=== PATIENT | male | born 1965 | race Two or more races ===

== ENCOUNTER 2018-07-01 10:01 | Emergency (ER) | payer BC ==
[2018-07-01] MEDS ORDERED: Sodium Chloride 0.9% 1,000 ML IV SCH (10:15)
[2018-07-01 10:16] VITALS: BP 143/91
--- NOTE | 2018-07-01 10:19 | EDM.PDOC ---
ED HPI GENERAL MEDICAL PROBLEM - General Chief Complaint: Chest Pain Stated Complaint: BODY CRAMPS Time Seen by Provider: 07/01/18 10:05 Source of Information: Reports: Patient History Limitations: Reports: No Limitations - History of Present Illness INITIAL COMMENTS - FREE TEXT/NARRATIVE: 52-year-old male Syriac [place] descent presents to the ED for evaluation of diffuse body cramps. It's primarily affecting his lower extremities but has affected his left abdominal wall as well as his chest and neck musculature at times. 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 He states that often during the day he feels lightheaded dizzy and like he could pass out. Of note the patient is on 2 antihypertensive medications. Patient states she's lost about 15 pounds of weight in the last 4 weeks. He states he has polydipsia and polyuria. Not known to be diabetic. He has decreased his metoprolol from 50 mg a day to 25 mg a day as he recognized he was getting too dizzy from the medication. Initial blood pressure here is 143/91. Of course she is mildly apprehensive. He told the nurses that he was experiencing chest pains but from history these are chest wall muscle spasms not cardiac related. Nurses were able to ascertain that since February he's been taking primarily a vegetarian type diet and having only a sandwich once a day. Us is the reason for primarily for his weight loss. He was purposely trying to lose weight but never to lower his cholesterol. Onset: Other (Has been having intermittent cramping in his musculature and feeling weak and dizzy for at least 3 weeks) Onset Date: 06/07/18 Duration: Week(s):, Chronic Location: Reports: Generalized (Generalized muscle ) Quality: Reports: Other Severity: Severe (Strong muscle cramps particularly involving his lower extremities. Very hard to walk at times.) Improves with: Reports: Rest Worsens with: Reports: Other Context: Reports: Other (Works outside in hot ambient temperatures as of late.) . Denies: Activity (Activity and work outside seems to make things worse.), Exercise, Lifting, Sick Contact, Trauma Associated Symptoms: Reports: Chest Pain, Cough (Muscle cramps in his chest wall.), Malaise, Weakness (At times). 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 (see below) (Only medications prescribed.) Chest Pain Score (Numeric/FACES): 5 - Related Data Allergies Allergy/AdvReac Type Severity Reaction Status Date / Time No Known Allergies Allergy Verified 07/01/15 21:13 Home Meds: Home Meds Metoprolol Succinate 25 mg PO DAILY 03/31/14 [History] Pantoprazole [Protonix] 40 mg PO DAILY 03/31/14 [History] Aspirin [Halfprin] 1 tab PO DAILY 07/01/18 [History] FLUoxetine [PROzac] 10 mg PO DAILY 07/01/18 [History] Ibuprofen/Famotidine [Duexis 800-26.6 MG] 1 each PO Q8H PRN 07/01/18 [History] atorvaSTATin [Lipitor] 5 mg PO DAILY 07/01/18 [History] traZODone HCl [Trazodone HCl] 100 mg PO BEDTIME PRN 07/01/18 [History] Past Medical History Other Gastrointestinal History: h pylori history Musculoskeletal History: Reports: Other (See Below) (Has been having some right flank back pain for the last 2-3 weeks.) Neurological History: Reports: Other (See Below) (Dizziness.) Social & Family History - Living Situation & Occupation Living situation: Reports: Occupation: Employed [employer] - Review of Systems Review Of Systems: See Below Constitutional: Reports: Malaise, Weakness, Fatigue, Diaphoresis (At times), Decreased Appetite (Reports 15 pound weight loss over the last 4 weeks), Weight Loss. Denies: Fever, Chills HEENT: Denies: Contact Lenses, Dental Pain, Ear Discharge, Glasses, Hearing Loss , Nosebleed, Nose Pain, Rhinitis, Sinus Problem, Throat Pain, Throat Swelling, Vertigo, Vision Change Respiratory: Reports: Cough (Feels a scratching feeling in the back of his throat suspect due to allergy. This will sometimes make him cough nonproductive. ) Cardiovascular: Reports: Blood Pressure Problem, Lightheadedness. Denies: Chest Pain, Claudication (Chronically hypertensive and is on medication for this.), Dyspnea on Exertion, Edema (Intermittently), Orthopnea, Palpitations, PND, Syncope, Other Endocrine: Reports: Fatigue GI/Abdominal: Reports: Abdominal Pain, Decreased Appetite (Abdominal wall cramping pain.), Nausea (Occasionally.). Denies: Black Stool, Bloody Stool, Difficulty Swallowing, Distension, Flatus, Hematochezia, Melena, Stool Incontinence : Reports: Frequency Musculoskeletal: Reports: Back Pain (Persistent back pain right flank area for the last 3 weeks.) Skin: Reports: No Symptoms Neurological: Reports: Dizziness, Difficulty Walking, Weakness. Denies: Pre- Existing Deficit (Lightheadedness at times), Seizure, Syncope, Tingling, Trouble Speaking, Change in Speech (If occult walking occurs sometimes due to cramping in his lower extremities), Gait Disturbance Psychiatric: Denies: Agitation, Anxiety, Confusion, Cravings, Depression, Homicidal Ideation, Suicidal Ideation Hematologic/Lymphatic: Reports: No Symptoms Immunologic: Reports: No Symptoms ED EXAM, GENERAL - Physical Exam Exam: See Below Exam Limited By: No Limitations General Appearance: Alert, WD/WN, No Apparent Distress Eye Exam: Bilateral Eye: Normal Inspection Throat/Mouth: Normal Inspection, Normal Lips, Normal Teeth, Normal Oropharynx, Other Head: Atraumatic, Normocephalic (Tongue appears moist.) Neck: Normal Inspection, Supple, Non-Tender, Full Range of Motion. No: Lymphadenopathy (L), Lymphadenopathy (R), Thyromegaly Respiratory/Chest: No Respiratory Distress, Lungs Clear, Normal Breath Sounds, No Accessory Muscle Use, Chest Non-Tender Cardiovascular: Normal Peripheral Pulses, Regular Rate, Rhythm, No Edema, No Gallop, No Murmur, No Rub Peripheral Pulses: 2+: Posterior Tibial (L), Posterior Tibial (R), Dorsalis Pedis (L), Dorsalis Pedis (R), 3+: Carotid (L), Carotid (R) (He reports she's had recent carotid ultrasound which was reported to be normal.) GI/Abdominal: Normal Bowel Sounds, Soft, Non-Tender, No Organomegaly, No Abnormal Bruit, No Mass, Pelvis Stable, Other (Male) Exam: No Hernia (No surgical scars) Back Exam: Normal Inspection, Full Range of Motion, Other (She does have some mild muscle spasm over his right paraspinal musculature over rib heads 9 and 10 on the right back. That he has mild rib head subluxation in this area. 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 No: CVA Tenderness (L ), CVA Tenderness (R) Extremities: Normal Inspection, Normal Range of Motion, Non-Tender, No Pedal Edema Neurological: Alert, Oriented, CN II-XII Intact, Normal Cognition, No Motor/ Sensory Deficits Psychiatric: Normal Affect, Normal Mood Skin Exam: Warm, Dry, Intact, Normal Color, No Rash EKG INTERPRETATION EKG Date: 07/01/18 Time: 10:10 Rhythm: Other (Sinus bradycardia) Rate (Beats/Min): 57 Goldvein: Normal P-Wave: Present QRS: Normal ST-T: Normal QT: Normal EKG Interpretation Comments: Normal ECG Course - Vital Signs Last Recorded V/S: Last Vital Signs Temp 36.3 C 07/01/18 10:08 Pulse 61 07/01/18 10:08 Resp 16 07/01/18 10:08 BP 143/91 H 07/01/18 10:08 Pulse Ox 97 07/01/18 10:08 Orthostatic Blood Pressure [ 111/79 Standing] Orthostatic Blood Pressure [ 127/79 Sitting] Orthostatic Blood Pressure [ 115/72 Supine] - Orders/Labs/Meds Orders: Active Orders 24 hr Category Date Time Status EKG Documentation Completion [RC] STAT Care 07/01/18 10:16 Active Chest 1V Frontal [CR] Stat Exams 07/01/18 10:16 Taken Labs: Laboratory Tests 07/01/18 07/01/18 07/01/18 Range/Units 10:25 10:25 10:25 WBC 3.78 L (4.23-9.07) K/mm3 RBC 4.93 (4.63-6.08) M/mm3 Hgb 15.0 (13.7-17.5) gm/L Hct 42.3 (40.1-51.0) % MCV 85.8 (79.0-92.2) fl MCH 30.4 (25.7-32.2) pg MCHC 35.5 (32.2-35.5) g/dl RDW Std Deviation 38.3 (35.1-43.9) fL Plt Count 227 (163-337) K/mm3 MPV 10.9 (9.4-12.3) fl Neutrophils % (Manual) 52 (40-60) % Band Neutrophils % 0 (0-10) % Lymphocytes % (Manual) 44 H (20-40) % Atypical Lymphs % 0 % Monocytes % (Manual) 4 (2-10) % Eosinophils % (Manual) 0 L (0.8-7.0) % Basophils % (Manual) 0 L (0.2-1.2) Platelet Estimate Adequate RBC Morph Comment Normal Sodium 139 (136-145) mEq/L Potassium 3.9 (3.5-5.1) mEq/L Chloride 104 (98-107) mEq/L Carbon Dioxide 27 (21-32) mEq/L Anion Gap 11.9 (5-15) BUN 12 (7-18) mg/dL Creatinine 0.9 (0.7-1.3) mg/dL Est Cr Clr Drug Dosing 99.14 mL/min Estimated GFR (MDRD) > 60 (>60) mL/min BUN/Creatinine Ratio 13.3 L (14-18) Glucose 97 (74-106) mg/dL Serum Osmolality 285 (280-300) mosm/kg Calcium 8.5 (8.5-10.1) mg/dL Magnesium 2.0 (1.8-2.4) mg/dl Total Bilirubin 0.8 (0.2-1.0) mg/dL AST 16 (15-37) U/L ALT 25 (16-63) U/L Alkaline Phosphatase 64 (46-116) U/L Creatine Kinase 76 (39-308) U/L C-Reactive Protein < 0.2 (<1.0) mg/dL Total Protein 7.4 (6.4-8.2) g/dl Albumin 3.8 (3.4-5.0) g/dl Globulin 3.6 gm/dL Albumin/Globulin Ratio 1.1 (1-2) TSH 3rd Generation 0.854 (0.358-3.74) uIU/mL Ketones 0.16 (0.0-0.3) mM Meds: Medications Discontinued Medications Generic Name Dose Route Start Last Admin Trade Name Freq PRN Reason Stop Dose Admin Sodium Chloride 1,000 mls @ 999 mls/hr 07/01/18 10:15 07/01/18 10:37 Normal Saline IV 999 mls/hr ASDIRECTED JACQUE Administration Ketorolac Tromethamine 30 mg 07/01/18 10:30 07/01/18 10:37 Toradol IVPUSH 30 mg ONETIME JACQUE Administration - Radiology Interpretation Free Text/Narrative:: 52-year-old male sent across from [facility] where he presented complaining of diffuse cramping pain primarily in his lower extremities but also involving his left abdominal wall pain is anterior chest and neck musculature. By history the symptoms of been ongoing for the last 3-4 weeks. They occur primarily at work. 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 No associated nausea vomiting. Associate lightheadedness dizziness and weakness at times. He believes he may have lost up to 15 pounds of weight in the last month. He has cut his blood pressure medication I metoprolol from 50 mg a day to 25 mg a day recognizing that he seemed to be too lightheaded with the full dose. His ECG shows sinus rhythm at 57/m with no abnormalities. At the time my assessment he was not a spacing any muscle cramping pain. - Re-Assessments/Exams Free Text/Narrative Re-Assessment/Exam: 07/01/18 10:42 portable chest x-ray has been completed. It is within normal limits. Cardiac silhouette is normal size. Heart rate is down to 54/m and is sinus BP is 101/90. 07/01/18 11:25 Labs are back. White count is normal at 3.78 with 50% neutrophils and no bands reported. Hemoglobin is 15.0 with hematocrit of 42.3. MCV is normal at 85.8. Platelet count normal 227,000. Sodium is 139 with a potassium of 3.9. Chloride 104 the bicarbonate 27. And a gap is normal at 11.9. BUN is 12 with a creatinine of 0.9. GFR is greater than 60. Glucose is 97. Serum osmolality 285. Calcium 8.5 magnesium 2.0. Liver function normal creatine kinase is 76 total. C-reactive protein is less than 0.2. TSH is 0.854. 07/01/18 11:27 orthostatic BPs reveal standing blood pressure to be 111/79 with heart rate of 64. Lying blood pressure is 115/72 with a heart rate of 59. 07/01/18 11:37 after discussion with the patient I believe his 15-18 pound weight loss over the last 6 weeks is likely reduced his need for any blood pressure medication. The metoprolol is reducing his heart rating causing a chronic bradycardia which is contributing to his lightheadedness and dizziness particularly when he is working outside in the heat. Plan is to discontinue the metoprolol completely. Currently only taking half a dose that was prescribed in the past. Going to add a calcium magnesium supplement 600 mg once daily he is following a very strict vegetarian diet and a vitamin B complex tablet once daily. I've asked him to follow-up with his personal care physician in 3-4 weeks time to see how his blood pressure is doing. Perhaps if he needs a new blood pressure medication low-dose lisinopril would be a little more suitable for his age with less side effect profile. Departure - Departure Time of Disposition: 11:38 Disposition: Home, Self-Care 01 Condition: Fair Clinical Impression: Orthostatic hypotension after exercise - Discharge Information *PRESCRIPTION DRUG MONITORING PROGRAM REVIEWED*: Not Applicable *COPY OF PRESCRIPTION DRUG MONITORING REPORT IN PATIENT BUTCH: Not Applicable Instructions: Orthostatic Hypotension Referrals: PCP,None [Ordering Only Provider] - Forms: ED Department Discharge Additional Instructions: Evaluation the emergency room today in regards to recurrent generalized Muscuo- skeletal cramping pain tic again noted while working outside in high ambient temperatures. All of the investigations done through the emergency department today are completely normal. The only major finding is that your blood pressure and heart rate are running too low secondary to side effect of your current blood pressure medication metoprolol. Since you've lost 15 pounds or more over the last several months it appears that you no longer need of blood pressure medication. Therefore my suggestion is to discontinue the metoprolol completely and then follow your blood pressure along over the next few months and see if blood pressure goes up high enough to require a blood pressure reducing agent. Normal blood pressure should be 135 on the top or less and ideally less than 90 on the bottom at all times. Plenty of fluids while working outside as we discussed. This includes at least one bottle of Gatorade per day. I would suggest a calcium magnesium supplement called Terry mag 600 mg once daily to support your vegetarian diet and a vitamin B complex 1 tablet once daily again to support vegetarian diet. Over the next week he should notice dramatic difference in terms of action of musculoskeletal cramping pain and no further dizziness or weakness. Just follow-up with your primary care physician in 3-4 weeks time to check on her blood pressure. - My Orders Last 24 Hours: My Active Orders 07/01/18 10:16 EKG Documentation Completion [RC] STAT Chest 1V Frontal [CR] Stat - Assessment/Plan Last 24 Hours: My Active Orders 07/01/18 10:16 EKG Documentation Completion [RC] STAT Chest 1V Frontal [CR] Stat
[2018-07-01] MEDS ORDERED: Ketorolac 30 MG/ML SDV IVPUSH SCH (10:30)
--- NOTE | 2018-07-04 14:07 | CR ---
Chest: Portable view of the chest was obtained. Comparison: Prior chest x-ray of 05/30/15. Heart size is normal. Mild tortuosity of the thoracic aorta is seen. Lungs are clear. Bony structures are grossly intact. Impression: 1. Nothing acute is seen on portable chest x-ray. Diagnostic code #1
== END 2018-07-01 12:00 | disposition home or self-care (01) ==
LOC: JD.ED 10:01
DX: I95.1 Orthostatic hypotension (principal)
CPT/HCPCS: 36415; 71045; 80053; 82009; 82550; 83735; 83930; 84443; 85007; 85027; 86140; 93005; 96361; 96374; 99285; J1885; J7040

== ENCOUNTER 2020-07-31 09:48 | Day surgery (SDC) | payer BC ==
[~2020-07-31 09:48] MED LIST: Lactated Ringers 1,000 ML IV SCH; Lidocaine 1%/Sod Bicarbonate in NS 8.4% 1 ML Syringe IDERM PRN; Sodium Chloride 0.9% 10 ML Syringe FLUSH PRN
--- NOTE | 2020-07-31 11:56 | PCM.PREANE ---
Preanesthetic Assessment - Procedure Proposed Procedure: Diagnostic EGD and Laparoscopic Hiatal Hernia Repair - Anesthesia/Transfusion/Family Hx Anesthesia History: Prior Anesthesia Without Reaction Family History of Anesthesia Reaction: No - Review of Systems General: No Symptoms Pulmonary: No Symptoms Cardiovascular: No Symptoms (One episode of atrial fibrillation, sent to cardiology. Started on medication for management, Stress test, read by cardiology as negative. ECHO 60-65%. EKG SB 56 bpm. ) Gastrointestinal: Other (GERD, Hiatal Hernia) Neurological: No Symptoms Other: Reports: Anxiety (Can be "pretty bad" per patient. Nervous today but doing well. ) - Physical Assessment NPO Status Date: 07/30/20 NPO Status Time: 21:00 Vital Signs: Last Vital Signs Temp 36.4 C 07/31/20 09:50 Pulse 75 07/31/20 09:50 Resp 16 07/31/20 09:50 BP 128/76 07/31/20 09:50 Pulse Ox 98 07/31/20 09:50 Height: 1.78 m Weight: 81.647 kg ASA Class: 2 Mental Status: Alert & Oriented x3 Airway Class: Mallampati = 1 Dentition: Reports: Missing Tooth/Teeth (Multiple missing, none loose. ) Thyro-Mental Finger Breadths: 3 Mouth Opening Finger Breadths: 3 ROM/Head Extension: Full Lungs: Clear to Auscultation, Normal Respiratory Effort Cardiovascular: Regular Rate, Regular Rhythm - Lab Values: Laboratory Last Values SARS-CoV-2 RNA (KRISTIAN) Negative (NEGATIVE) 07/31/20 09:55 - Allergies Allergies/Adverse Reactions: Allergies Allergy/AdvReac Type Severity Reaction Status Date / Time No Known Allergies Allergy Verified 07/01/15 21:13 - Anesthesia Plan Pre-Op Medication Ordered: Anxiolytic, Other (Scopalamine Patch) - Acknowledgements Anesthesia Type Planned: General Anesthesia Pt an Appropriate Candidate for the Planned Anesthesia: Yes Alternatives and Risks of Anesthesia Discussed w Pt/Guardian: Yes Pt/Guardian Understands and Agrees with Anesthesia Plan: Yes Additional Comments: Note from Cardiology stating metoprolol discontinued. Patient continues to take the medication. 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 He is not sure about the metoprolol. Dr. Appiah notifed. Request sent to primary care to confirm the medications Robin is to be taking. PreAnesthesia Questionnaire - Past Health History Medical/Surgical History: Denies Medical/Surgical History HEENT History: Reports: Other (See Below) Other HEENT History: acute pharyngitis, bilateral hearing loss, tinnitis Cardiovascular History: Reports: Afib, High Cholesterol, Hypertension Other Cardiovascular History: chest pain Respiratory History: Reports: Other (See Below) Other Respiratory History: cough, reactive airway disease, sore throat Gastrointestinal History: Reports: Helicobacter Pylori, Other (See Below) Other Gastrointestinal History: RUQ pain, inguinal adenopathy, inguinal pain, pulsatile abdomen Genitourinary History: Reports: Other (See Below) Other Genitourinary History: suprapubic pain, urinary dysfunction 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 Musculoskeletal History: Reports: Arthritis, Other (See Below) Other Musculoskeletal History: myalgia Neurological History: Reports: None Psychiatric History: Reports: Anxiety Endocrine/Metabolic History: Reports: None Hematologic History: Reports: None Immunologic History: Reports: None Oncologic (Cancer) History: Reports: None Dermatologic History: Reports: None - Past Surgical History Head Surgeries/Procedures: Reports: None HEENT Surgical History: Reports: None Cardiovascular Surgical History: Reports: None Respiratory Surgical History: Reports: None GI Surgical History: Reports: None Female Surgical History: Reports: None Male Surgical History: Reports: None Endocrine Surgical History: Reports: None Neurological Surgical History: Reports: None Musculoskeletal Surgical History: Reports: None Other Musculoskeletal Surgeries/Procedures:: finger surgery Oncologic Surgical History: Reports: Bone Marrow Transplant - HOME MEDS Home Medications: Home Meds Metoprolol Succinate 25 mg PO DAILY 03/31/14 [History] Ibuprofen/Famotidine [Duexis 800-26.6 MG] 1 each PO Q8H PRN 07/01/18 [History] atorvaSTATin [Lipitor] 5 mg PO DAILY 07/01/18 [History] traZODone HCl [Trazodone HCl] 100 mg PO BEDTIME PRN 07/01/18 [History] Apixaban [Eliquis] 5 mg PO DAILY 07/31/20 [History] Omeprazole 20 mg PO BID 07/31/20 [History] busPIRone [Buspar] 15 mg PO DAILY 07/31/20 [History] dilTIAZem HCL [Cartia Xt] 240 mg PO DAILY 07/31/20 [History] lisinopriL [Lisinopril] 40 mg PO DAILY 07/31/20 [History] - CURRENT (IN HOUSE) MEDS Current Meds: Current Medications Lactated Ringer's (Ringers, Lactated) 1,000 mls @ 125 mls/hr IV ASDIRECTED JACQUE Stop: 07/31/20 23:00 Last Admin: 07/31/20 10:25 Dose: 125 mls/hr Documented by: Lidocaine/Sodium Bicarbonate (Buffered Lidocaine 1% In Ns 8.4%) 0.25 ml IDERM ONETIME PRN PRN Reason: Prior to IV Start Stop: 07/31/20 18:00 Last Admin: 07/31/20 10:24 Dose: 0.25 ml Documented by: Sodium Chloride (Saline Flush) 10 ml FLUSH ASDIRECTED PRN PRN Reason: Keep Vein Open Stop: 07/31/20 18:00
[2020-07-31] MEDS ORDERED: Scopolamine 1.5 MG Transdermal Patch TOP SCH (12:00)
[2020-07-31] MEDS ORDERED: Ondansetron 4 MG/2 ML SDV ONE (12:06)
[2020-07-31] MEDS ORDERED: Rocuronium 50 MG/5 ML Vial ONE ×2 (12:06→13:48)
[2020-07-31] MEDS ORDERED: Lidocaine 1% 4 ML ONE (12:06)
[2020-07-31] MEDS ORDERED: fentaNYL 250 MCG/5 ML SDV ONE (12:07)
[2020-07-31] MEDS ORDERED: Propofol 200 MG/20 ML SDV ONE (12:07)
[2020-07-31] MEDS ORDERED: Midazolam 1 MG/ML 2 ML SDV ONE (12:07)
[2020-07-31] MEDS ORDERED: Ketamine 500 mg/10 ML MDV ONE (12:07)
[2020-07-31] MEDS ORDERED: HYDROmorphone 0.5 MG/0.5 ML Syringe ONE ×2 (13:09→14:44)
[2020-07-31] MEDS ORDERED: Lactated Ringers 1,000 ML ONE (13:13)
[2020-07-31] MEDS ORDERED: HYDROmorphone 0.5 MG/0.5 ML Syringe IVPUSH PRN (13:18)
[2020-07-31] MEDS ORDERED: fentaNYL 100 MCG/2 ML SDV IVPUSH PRN (13:18)
[2020-07-31] MEDS ORDERED: Ondansetron 4 MG/2 ML SDV IVPUSH PRN ×2 (13:18→15:33)
[2020-07-31] MEDS: Bupivacaine 0.5%/EPINEPHrine 1:200,000 50 ML MDV ONE ×2 (13:32→13:44)
[2020-07-31] MEDS ORDERED: ePHEDrine Sulfate/0.9% NaCl/Pf 25 MG/5 ML SYRINGE IV ONE (13:32)
[2020-07-31] MEDS ORDERED: ceFAZolin 1 GM Vial ONE (13:47)
[2020-07-31] MEDS ORDERED: fentaNYL 100 MCG/2 ML SDV ONE (13:52)
[2020-07-31] MEDS ORDERED: Dexamethasone 4 MG/ML 5 ML MDV ONE (14:12)
[2020-07-31] MEDS ORDERED: Ketorolac 30 MG/ML SDV ONE (15:02)
--- NOTE | 2020-07-31 15:28 | PCM.PRNOTE ---
- Free Text/Narrative Note: Date: 07/31/2020 Surgeon: Sean Appiah MD Operation: diagnostic esophagogastroscopy, laparoscopic hiatal hernia repair with partial fundoplication Diagnosis: Hiatus hernia Antibiotic: 2 g ancef IV Estimated blood loss: 10 cc DVT prophylaxis: SCD Complications: none Findings: small hiatal hernia Detailed report: The patient was placed supine on the operating table and underwent general endotracheal anesthesia. First, diagnostic esophagogastroscopy was performed; no significant esophageal or gastric pathology was evident. Next, a charles catheter was placed, and pre-operative antibiotics was administered. SCDs were placed, and the patient was placed in lithotomy. Timeout was performed. A Veress needle was inserted at [facility] and the abdominal cavity was insufflated to 15 mm Hg. A needle and syringe were used to aspirate pneumoperitoneum at a planned 12 mm laparoscopic port site 15 cm inferior to the xiphoid process and 2 cm to the left of midline. A 12 mm bladed trocar was then placed at the site. A 10 mm 30 degree laparoscope was inserted into the abdomen. Safe placement with the Veress was confirmed visually and the needle was removed. The patient was placed in steep reverse Trendelenburg. Additional ports were then placed: a 5 mm left lateral port for the program support assistant, a 5 mm right late ral port for the liver retractor, and a 12 mm port at the left subcostal margin along the midclavicular line. The liver retractor was set up using the Bookwalter post and snake arm retractor, and the left lobe of the liver was lifted and secured anteriorly, exposing the proximal anterior part of the stomach. A small hiatal hernia was evident. An additional 5 mm port was placed inferior to the right subcostal margin for the surgeons left hand. The hernia contents were reduced. The [place] Ligasure was then used to divide the pars flaccida and expose the medial crural area, and the esophagus was carefully bluntly dissected from from the phrenic attachments circumferentially, freeing up the anterior, medial and lateral parts at the hiatus. Next, the omentum was divided along the greater curvature starting at the midportion of the stomach. The lesser sac was entered. Short gastric vessels were divided using the Ligasure. This plane of dissection met up with the crural dissection. A grasper was passed from medial to lateral, posterior to the esophagus. A inch bud drain was passed around the distal esophagus above the hernia sac and secured with the Endoloop. A locking grasper was placed on the bud and the stomach was retracted inferolaterally. Dissection continued with the [place] into the hiatus, mobilizing the esophagus well up into the chest. Two 0 ethibond pledgeted sutures were used to close the hiatus, bringing the pillars of the crura together posterior to the esophagus. The fundus of the stomach was then passed posteriorly from left to right in order to position for a Toupet fundoplication. 2-0 ethibond sutures were used to secure the wrapped fundus in place to the anterolateral esophagus, three stitches on each side, to create a 270 degree wrap. The fundoplication measured about 3 cm in length. The larger port sites were closed at the level of fascia using 0 vicryl suture on the laparoscopic suture passer. The liver retractor was removed and insufflation released. All incisions were closed at the level of the skin with running vicryl suture. The patient tolerated the procedure well, was extubated in the operating room and transferred to the recovery room for routine post-anesthesia care.
[2020-07-31] MEDS ORDERED: Lactated Ringers 1,000 ML IV SCH (15:30)
[2020-07-31] MEDS ORDERED: Morphine 2 MG/ML SYRINGE IVPUSH PRN (15:30)
[2020-07-31] MEDS ORDERED: Promethazine 12.5 MG in Sodium Chloride 0.9% 50 ML IV PRN (15:32)
--- NOTE | 2020-07-31 15:38 | PCM.POSTAN ---
POST ANESTHESIA ASSESSMENT - MENTAL STATUS Mental Status: Alert, Oriented - VITAL SIGNS Vital Signs: Last Vital Signs Temp 97.6 F 07/31/20 09:50 Pulse 75 07/31/20 09:50 Resp 16 07/31/20 09:50 BP 128/76 07/31/20 09:50 Pulse Ox 98 07/31/20 09:50 1533 103 14 98.0 96% 133/76 - RESPIRATORY Respiratory Status: Respiratory Rate WNL, Airway Patent, O2 Saturation Stable, Supplemental Oxygen - CARDIOVASCULAR CV Status: Pulse Rate WNL, Blood Pressure Stable - GASTROINTESTINAL GI Status: No Symptoms - PAIN Pain Score: 4 (some) - POST OP HYDRATION Hydration Status: Adequate & Stable
[2020-07-31] MEDS ORDERED: Metoprolol Succinate 25 MG Tab.ER PO SCH (16:00)
[2020-07-31] MEDS: Acetaminophen 325 MG Tab PO SCH ×2 (17:49→23:42)
[2020-07-31] MEDS: Heparin Sodium 5,000 Units/ML Vial SUBCUT SCH ×2 (17:54→23:43)
[2020-07-31] MEDS ORDERED: busPIRone 15 MG Tab PO SCH (18:00)
[2020-07-31] MEDS ORDERED: Diphtheria,Pertussis(Acell),Tetanus Vaccine 0.5 ML Syringe IM ONE (18:07)
[2020-07-31] MEDS ORDERED: traZODone 50 MG Tab PO PRN (21:00)
[2020-07-31] MEDS: oxyCODONE 5 MG Tab PO PRN (21:49)
[2020-08-01] MEDS: oxyCODONE 5 MG Tab PO PRN (06:19)
--- NOTE | 2020-08-01 07:41 | PCM48HPAN ---
Post Anesthesia Note - EVALUATION WITHIN 48HRS OF ANESTHETIC Vital Signs in Normal Range: Yes Patient Participated in Evaluation: Yes Respiratory Function Stable: Yes Airway Patent: Yes Cardiovascular Function Stable: Yes Hydration Status Stable: Yes Pain Control Satisfactory: Yes Nausea and Vomiting Control Satisfactory: Yes Mental Status Recovered: Yes Vital Signs: Last Vital Signs Temp 36.8 C 08/01/20 03:40 Pulse 85 08/01/20 03:40 Resp 16 08/01/20 03:40 BP 119/64 08/01/20 03:40 Pulse Ox 94 L 08/01/20 03:40 - COMMENTS/OBSERVATIONS Free Text/Narrative:: no anesthesia complications noted
[2020-08-01] MEDS: Acetaminophen 325 MG Tab PO SCH (08:55)
[2020-08-01] MEDS: Heparin Sodium 5,000 Units/ML Vial SUBCUT SCH (08:56)
[2020-08-01] MEDS ORDERED: ATORVASTATIN 5 MG PO SCH (09:00)
[2020-08-01] MEDS ORDERED: Diltiazem 240 MG Cap.ER PO SCH (09:00)
[2020-08-01] MEDS ORDERED: FLU VACC QS2020-21(6MOS UP)/PF 60 MCG/0.5 ML SYRINGE IM ONE (09:00)
[2020-08-01] MEDS ORDERED: Diphtheria,Pertussis(Acell),Tetanus Vaccine 0.5 ML Syringe IM ONE (09:00)
[2020-08-01 09:29] VITALS: PULSE 78
--- NOTE | 2020-08-01 12:23 | PCM.DCSUM1 ---
Discharge Summary - Hospital Course Free Text/Narrative:: Mr. Marc Baumann presented on 07/31 for elective laparoscopic hiatal hernia repair and Toupet fundoplication. The operation was performed without complication. He was kept overnight for observation. His pain was controlled and he tolerated clear liquids without a problem. He was deemed fit for discharge to home the afternoon of post-op day one after tolerating a full liquid diet. Diagnosis: Stroke: No - Discharge Data Discharge Date: 08/01/20 Discharge Disposition: Home, Self-Care 01 Condition: Good - Referral to Home Health Primary Care Physician: Selene Duarte PA-C - Patient Summary/Data Operative Procedure(s) Performed: laparoscopic hiatal hernia repair with Toupet fundoplication - Patient Instructions Diet: Full Liquid Diet Diet, Other: No carbonated beverages Activity: As Tolerated, No Lifting Over 10 Pounds Driving: May Drive Today Driving, Other: do not take narcotics if planning to drive Showering/Bathing: May Shower Wound/Incision Care: Keep Operative Site/Wound Site Clean and Dry Notify Provider of: Fever, Increased Pain, Swelling and Redness, Drainage, Nausea and/or Vomiting Other/Special Instructions: medicate nausea with anti-nausea medication agressively. Resume all your normal home medications starting on 08/02. - Discharge Plan *PRESCRIPTION DRUG MONITORING PROGRAM REVIEWED*: Not Applicable *COPY OF PRESCRIPTION DRUG MONITORING REPORT IN PATIENT BUTCH: Not Applicable Prescriptions/Med Rec: Ondansetron [Ondansetron ODT] 4 mg PO Q6H PRN #30 tab.rapdis PRN Reason: Nausea oxyCODONE 5 mg PO Q4H PRN #20 tab PRN Reason: Abdominal Pain Home Medications: Home Meds Metoprolol Succinate 25 mg PO DAILY 03/31/14 [History] Ibuprofen/Famotidine [Duexis 800-26.6 MG] 1 each PO Q8H PRN 07/01/18 [History] atorvaSTATin [Lipitor] 5 mg PO DAILY 07/01/18 [History] traZODone HCl [Trazodone HCl] 100 mg PO BEDTIME PRN 07/01/18 [History] Apixaban [Eliquis] 5 mg PO DAILY 07/31/20 [History] Omeprazole 20 mg PO BID 07/31/20 [History] busPIRone [Buspar] 15 mg PO DAILY 07/31/20 [History] dilTIAZem HCL [Cartia Xt] 240 mg PO DAILY 07/31/20 [History] lisinopriL [Lisinopril] 40 mg PO DAILY 07/31/20 [History] Ondansetron [Ondansetron ODT] 4 mg PO Q6H PRN #30 tab.rapdis 08/01/20 [Rx] oxyCODONE 5 mg PO Q4H PRN #20 tab 08/01/20 [Rx] Oxygen Therapy Mode: Room Air Patient Handouts: Eating Plan After Dayna Fundoplication, Toupet Fundoplication, Care After - Discharge Summary/Plan Comment DC Time >30 min.: No - Patient Data Vitals - Most Recent: Last Vital Signs Temp 37.1 C 08/01/20 09:02 Pulse 78 08/01/20 09:02 Resp 15 08/01/20 09:02 BP 115/86 08/01/20 09:02 Pulse Ox 94 L 08/01/20 09:02 Weight - Most Recent: 81.647 kg I&O - Last 24 hours: Intake & Output 07/31/20 08/01/20 08/01/20 22:59 06:59 14:59 Intake Total 1280 740 Output Total 675 350 350 Balance 605 -350 390 Lab Results - Last 24 hrs: Laboratory Results - last 24 hr 08/01/20 08/01/20 Range/Units 04:31 04:31 WBC 8.91 (4.23-9.07) K/mm3 RBC 4.61 L (4.63-6.08) M/mm3 Hgb 13.9 D (13.7-17.5) gm/dl Hct 41.4 (40.1-51.0) % MCV 89.8 (79.0-92.2) fl MCH 30.2 (25.7-32.2) pg MCHC 33.6 (32.2-35.5) g/dl RDW Std Deviation 40.2 (35.1-43.9) fL Plt Count 218 (163-337) K/mm3 MPV 11.3 (9.4-12.3) fl Neut % (Auto) 89.6 H (34.0-67.9) % Lymph % (Auto) 7.6 L (21.8-53.1) % [place] % (Auto) 2.7 L (5.3-12.2) % Eos % (Auto) 0 L (0.8-7.0) Baso % (Auto) 0.0 L (0.1-1.2) % Neut # (Auto) 7.98 H (1.78-5.38) K/mm3 Lymph # (Auto) 0.68 L (1.32-3.57) K/mm3 [place] # (Auto) 0.24 L (0.30-0.82) K/mm3 Eos # (Auto) 0.00 L (0.04-0.54) K/mm3 Baso # (Auto) 0.00 L (0.01-0.08) K/mm3 Manual Slide Review Normal smear Sodium 138 (136-145) mEq/L Potassium 3.8 (3.5-5.1) mEq/L Chloride 102 (98-107) mEq/L Carbon Dioxide 28 (21-32) mEq/L Anion Gap 11.8 (5-15) BUN 11 (7-18) mg/dL Creatinine 1.0 (0.7-1.3) mg/dL Est Cr Clr Drug Dosing 87.19 mL/min Estimated GFR (MDRD) > 60 (>60) mL/min BUN/Creatinine Ratio 11.0 L (14-18) Glucose 120 H (74-106) mg/dL Calcium 8.6 (8.5-10.1) mg/dL Med Orders - Current: Current Medications Acetaminophen (Tylenol) 975 mg PO Q8H [facility] Last Admin: 08/01/20 08:55 Dose: 975 mg Documented by: Buspirone HCl (Buspar) 15 mg PO QPM [facility] Last Admin: 07/31/20 17:53 Dose: 15 mg Documented by: Diltiazem HCl (Dilacor Xr) 240 mg PO DAILY [facility] Last Admin: 08/01/20 08:55 Dose: 240 mg Documented by: Heparin Sodium (Porcine) (Heparin Sodium) 5,000 units SUBCUT Q8H [facility] Last Admin: 08/01/20 08:56 Dose: 5,000 units Documented by: Promethazine HCl 12.5 mg/ (Sodium Chloride) 50.5 mls @ 100 mls/hr IV Q6H PRN PRN Reason: nausea Metoprolol Succinate (Toprol Xl) 25 mg PO DAILY@1600 [facility] Last Admin: 07/31/20 17:50 Dose: 25 mg Documented by: Non-Formulary Medication (Atorvastatin) 5 mg PO DAILY [facility] Oxycodone HCl (Oxycodone) 5 mg PO Q4H PRN PRN Reason: Pain (moderate 4-6) Last Admin: 08/01/20 06:19 Dose: 5 mg Documented by: Trazodone HCl (Trazodone) 100 mg PO BEDTIME PRN PRN Reason: Sleep Discontinued Medications Bupivacaine HCl/Epinephrine Bitart (Marcaine 0.5%/Epinephrine 1:200,000) Confirm Administered Dose 50 ml .ROUTE .STK-MED ONE Stop: 07/31/20 12:08 Last Admin: 07/31/20 13:32 Dose: 18 ml Documented by: Cefazolin Sodium (Ancef) Confirm Administered Dose 2 gm .ROUTE .STK-MED ONE Stop: 07/31/20 13:48 Dexamethasone (Dexamethasone) Confirm Administered Dose 20 mg .ROUTE .STK-MED ONE Stop: 07/31/20 14:13 Diphtheria/Tetanus/Acell Pertussis (Adacel) 0.5 ml IM .ONCE ONE Stop: 07/31/20 18:08 Last Admin: 07/31/20 21:11 Dose: Not Given Documented by: Diphtheria/Tetanus/Acell Pertussis (Adacel) 0.5 ml IM .ONCE ONE Stop: 08/01/20 09:01 Last Admin: 08/01/20 08:57 Dose: 0.5 ml Documented by: Ephedrine Sulfate (Ephedrine 25 Mg/5 Ml Syringe) Confirm Administered Dose 25 mg IV .STK-MED ONE Stop: 07/31/20 13:33 Fentanyl (Sublimaze) Confirm Administered Dose 250 mcg .ROUTE .STK-MED ONE Stop: 07/31/20 12:08 Fentanyl (Sublimaze) 50 mcg IVPUSH Q5M PRN PRN Reason: Pain Stop: 07/31/20 18:00 Fentanyl (Sublimaze) Confirm Administered Dose 100 mcg .ROUTE .STK-MED ONE Stop: 07/31/20 13:53 Glycopyrrolate () Confirm Administered Dose 1 mg .ROUTE .STK-MED ONE Stop: 07/31/20 14:45 Hydromorphone HCl (Dilaudid) Confirm Administered Dose 1 mg .ROUTE .STK-MED ONE Stop: 07/31/20 13:10 Hydromorphone HCl (Dilaudid) 0.5 mg IVPUSH Q10M PRN PRN Reason: Pain (severe 7-10) Stop: 07/31/20 18:00 Hydromorphone HCl (Dilaudid) Confirm Administered Dose 0.5 mg .ROUTE .STK-MED ONE Stop: 07/31/20 14:45 Lactated Ringer's (Ringers, Lactated) 1,000 mls @ 125 mls/hr IV ASDIRECTED [facility]ACQUE Stop: 07/31/20 23:00 Last Admin: 07/31/20 10:25 Dose: 125 mls/hr Documented by: Lidocaine HCl (Xylocaine-Mpf 1%) Confirm Administered Dose 4 mls @ as directed .ROUTE .STK-MED ONE Stop: 07/31/20 12:07 Lactated Ringer's (Ringers, Lactated) Confirm Administered Dose 1,000 mls @ as directed .ROUTE .STK-MED ONE Stop: 07/31/20 13:14 Lactated Ringer's (Ringers, Lactated) 1,000 mls @ 100 mls/hr IV ASDIRECTED [facility] Influenza Virus Vaccine (Fluzone Quad Syringe) 60 mcg IM .ONCE ONE Stop: 08/01/20 09:01 Last Admin: 08/01/20 08:58 Dose: 60 mcg Documented by: Ketamine HCl (Ketalar) Confirm Administered Dose 500 mg .ROUTE .STK-MED ONE Stop: 07/31/20 12:08 Ketorolac Tromethamine (Toradol) Confirm Administered Dose 30 mg .ROUTE .STK-MED ONE Stop: 07/31/20 15:03 Lidocaine/Sodium Bicarbonate (Buffered Lidocaine 1% In Ns 8.4%) 0.25 ml IDERM ONETIME PRN PRN Reason: Prior to IV Start Stop: 07/31/20 18:00 Last Admin: 07/31/20 10:24 Dose: 0.25 ml Documented by: Midazolam HCl (Versed 1 Mg/Ml) Confirm Administered Dose 2 mg .ROUTE .STK-MED ONE Stop: 07/31/20 12:08 Morphine Sulfate (Morphine) 1 mg IVPUSH Q4H PRN PRN Reason: Pain (severe 7-10) Neostigmine Methylsulfate (Neostigmine Methylsulfate) Confirm Administered Dose 5 mg .ROUTE .STK-MED ONE Stop: 07/31/20 14:45 Ondansetron HCl (Zofran) Confirm Administered Dose 4 mg .ROUTE .STK-MED ONE Stop: 07/31/20 12:07 Ondansetron HCl (Zofran) 4 mg IVPUSH ONETIME PRN PRN Reason: Nausea/Vomiting Stop: 07/31/20 18:00 Ondansetron HCl (Zofran) 4 mg IVPUSH Q6H PRN PRN Reason: Nausea/Vomiting Stop: 07/31/20 18:00 Propofol (Diprivan 20 Ml) Confirm Administered Dose 200 mg .ROUTE .STK-MED ONE Stop: 07/31/20 12:08 Rocuronium [place] (Zemuron) Confirm Administered Dose 50 mg .ROUTE .STK-MED ONE Stop: 07/31/20 12:07 Rocuronium [place] (Zemuron) Confirm Administered Dose 50 mg .ROUTE .STK-MED ONE Stop: 07/31/20 13:49 Scopolamine (Transderm-Scop) 1.5 mg TOP ONETIME [facility]ACQUE Stop: 07/31/20 14:00 Last Admin: 07/31/20 12:11 Dose: 1.5 mg Documented by: Sodium Chloride (Saline Flush) 10 ml FLUSH ASDIRECTED PRN PRN Reason: Keep Vein Open Stop: 07/31/20 18:00
[2020-08-01 14:19] VITALS: BP 128/76
== END 2020-08-01 13:45 | disposition home or self-care (01) ==
LOC: JD.SDS 09:48 → JD.OB 09:48 → JD.SDS 08-01 13:45
PROVIDERS: ATTEND Surgery
DX: K44.9 Diaphragmatic hernia without obstruction or gangrene (principal); Z01.812 Encounter for preprocedural laboratory examination; Z20.828 Contact with and (suspected) exposure to other viral communicable diseases; E78.00 Pure hypercholesterolemia, unspecified; J45.909 Unspecified asthma, uncomplicated; I10 Essential (primary) hypertension; K21.9 Gastro-esophageal reflux disease without esophagitis; F41.9 Anxiety disorder, unspecified; E78.5 Hyperlipidemia, unspecified; G47.00 Insomnia, unspecified; Z79.899 Other long term (current) drug therapy; Z23 Encounter for immunization
CPT/HCPCS: 36415; 43235; 43280; 51798; 80048; 85025; 87635; 90471; 90686; 90715; A9270; J0171; J0690; J1100; J1170; J1644; J1885; J2001; J2250; J2405; J2704; J2710; J3010; J3490; J7120; 00790; G0008; U0002